=== PATIENT | male | born 1990 | race Caucasian/White ===

== ENCOUNTER 2022-11-22 11:11 | Inpatient (IN) | payer OTHER ==
[2022-11-22 11:45] VITALS: BMI 199.3
[2022-11-22] MEDS ORDERED: NALOXONE HCL (KLOXXADO) 8 MG SPRAY NS PRN (12:05)
[2022-11-22] MEDS ORDERED: BENZOCAINE/MENTHOL (CHLORASEPTIC ) LOZENGE MM PRN (12:05)
[2022-11-22] MEDS ORDERED: IBUPROFEN 600 MG TABLET (FP) PO PRN (12:05)
[2022-11-22] MEDS ORDERED: BENZONATATE 200 MG CAPSULE PO PRN (12:05)
[2022-11-22] MEDS ORDERED: POLYETHYLENE GLYCOL (HEALTHYLAX) 3350 17 GM PACKET PO PRN (12:05)
[2022-11-22] MEDS ORDERED: LOPERAMIDE HCL 2 MG CAPSULE PO PRN (12:05)
[2022-11-22] MEDS ORDERED: MAGNESIUM HYDROX 2400MG/30ML ORAL SUSPENSION 30 ML CUP PO PRN (12:05)
[2022-11-22] MEDS ORDERED: IBUPROFEN 400 MG TABLET (FP) PO PRN (12:05)
[2022-11-22] MEDS ORDERED: guaiFENesin 600 MG TABLET.ER (FP) PO PRN (12:05)
[2022-11-22] MEDS ORDERED: BISMUTH SUBSALICYLATE 262 MG/15 ML BTL PO PRN (12:05)
[2022-11-22] MEDS ORDERED: hydrOXYzine PAMOATE 25 MG CAPSULE (FP) PO PRN (12:05)
[2022-11-22] MEDS ORDERED: BUPRENORPHINE HCL 150 MCG, BUPRENORPHINE HCL 75 MCG BC PRN (12:05)
[2022-11-22] MEDS ORDERED: NICOTINE 10 MG CARTRIDGE (INHALER) IH PRN (12:05)
[2022-11-22] MEDS ORDERED: NALOXONE HCL 0.4 MG/ML VIAL IM PRN (12:05)
[2022-11-22] MEDS ORDERED: BUPRENORPHINE HCL 150 MCG, BUPRENORPHINE HCL 75 MCG BC ONE (12:05)
[2022-11-22] MEDS ORDERED: ONDANSETRON *ODT* 4 MG TABLET SL PRN (12:05)
[2022-11-22] MEDS ORDERED: DICYCLOMINE HCL 10 MG CAPSULE PO PRN (12:05)
[2022-11-22] MEDS ORDERED: cloNIDine HCL 0.1 MG TABLET PO ONE (12:05)
[2022-11-22] MEDS ORDERED: ACETAMINOPHEN 325 MG TABLET (FP) PO PRN (12:05)
[2022-11-22] MEDS: NICOTINE 14 MG/24 HOURS TOPICAL PATCH TD SCH (13:00)
[2022-11-22] MEDS: PRENATAL VITAMINS W/ FOLIC ACID TABLET (FP) PO SCH (13:00)
[2022-11-22] MEDS ORDERED: BUPRENORPHINE HCL 75 MCG FILM BC ONE (13:04)
[2022-11-22] MEDS ORDERED: NICOTINE 14 MG/24 HOURS TOPICAL PATCH TD ONE (13:04)
[2022-11-22] MEDS ORDERED: BUPRENORPHINE HCL 150 MCG FILM BC ONE (13:04)
[2022-11-22] MEDS ORDERED: PRENATAL VITAMINS W/ FOLIC ACID TABLET (FP) PO ONE (13:05)
[2022-11-22 17:03] LABS: ALBUMIN 3.6 g/dl (3.4-5.0); BLOOD UREA NITROGEN 9.8 mg/dL (7-18); CALCIUM 8.7 mg/dL (8.5-10.1)
[2022-11-22 17:04] LABS: HEMATOCRIT 43.1 % (35.4-49); MCH 33.1 pg (25.7-33.7); MCHC 34.9 g/dl (32.0-35.9); MEAN CELL VOLUME 94.9 fl (80-96); MEAN PLT VOLUME 9.6 fl (7.5-11.1); PLATELET COUNT 175 10^3/uL (134-434); RBC 4.54 M/mm3 (4.00-5.60); RDW 13.1 % (11.9-15.9); WHITE BLOOD COUNT 5.2 K/mm3 (4.0-10.0)
[2022-11-22 17:06] LABS: CREATININE 0.8 mg/dL (0.55-1.3)
[2022-11-22 17:08] LABS: BILIRUBIN,TOTAL 0.3 mg/dL (0.2-1); TOT PROT 6.5 g/dl (6.4-8.2)
[2022-11-22] MEDS: AMOXICILLIN 250 MG CAPSULE PO SCH (22:12)
[2022-11-22] MEDS: THIAMINE HCL 100 MG TABLET (FP) PO SCH (22:12)
[2022-11-22] MEDS: MELATONIN 5 MG TABLETS PO SCH (22:12)
[2022-11-22] MEDS: diazePAM 5 MG TABLET PO PRN (22:14)
[2022-11-23] MEDS ORDERED: BUPRENORPHINE HCL 150 MCG, BUPRENORPHINE HCL 75 MCG BC PRN
[2022-11-23] MEDS: BUPRENORPHINE HCL 150 MCG, BUPRENORPHINE HCL 75 MCG BC SCH ×2 (05:26→17:45)
[2022-11-23] MEDS: NICOTINE 14 MG/24 HOURS TOPICAL PATCH TD SCH (10:20)
[2022-11-23] MEDS: PRENATAL VITAMINS W/ FOLIC ACID TABLET (FP) PO SCH (10:20)
[2022-11-23] MEDS: diazePAM 5 MG TABLET PO PRN ×2 (10:21→22:14)
[2022-11-23] MEDS: AMOXICILLIN 250 MG CAPSULE PO SCH ×2 (10:21→22:14)
[2022-11-23] MEDS: BACITRACIN 0.9 GM PACKET TP SCH (14:58)
[2022-11-23] MEDS: cloNIDine HCL 0.1 MG TABLET PO PRN (17:45)
[2022-11-23] MEDS: THIAMINE HCL 100 MG TABLET (FP) PO SCH (22:13)
[2022-11-23] MEDS: MELATONIN 5 MG TABLETS PO SCH (22:13)
[2022-11-24] MEDS: BUPRENORPHINE HCL 450 MCG FILM BC SCH ×2 (05:29→17:43)
[2022-11-24] MEDS: METHOCARBAMOL 500 MG TABLET PO PRN (05:32)
[2022-11-24] MEDS: AMOXICILLIN 250 MG CAPSULE PO SCH ×2 (10:10→21:33)
[2022-11-24] MEDS: PRENATAL VITAMINS W/ FOLIC ACID TABLET (FP) PO SCH (10:10)
[2022-11-24] MEDS: BACITRACIN 0.9 GM PACKET TP SCH (10:10)
[2022-11-24] MEDS: NICOTINE 14 MG/24 HOURS TOPICAL PATCH TD SCH (10:11)
[2022-11-24] MEDS: diazePAM 5 MG TABLET PO PRN (10:11)
[2022-11-24] MEDS: cloNIDine HCL 0.1 MG TABLET PO PRN (17:43)
[2022-11-24] MEDS: MELATONIN 5 MG TABLETS PO SCH (21:33)
[2022-11-24] MEDS: THIAMINE HCL 100 MG TABLET (FP) PO SCH (21:33)
[2022-11-25] MEDS: BUPRENORPHINE/NALOXONE 4 MG/1 MG FILM PACKET SL SCH ×2 (05:31→17:32)
[2022-11-25] MEDS: BACITRACIN 0.9 GM PACKET TP SCH (10:09)
[2022-11-25] MEDS: NICOTINE 14 MG/24 HOURS TOPICAL PATCH TD SCH (10:10)
[2022-11-25] MEDS: AMOXICILLIN 250 MG CAPSULE PO SCH ×2 (10:10→22:10)
[2022-11-25] MEDS: PRENATAL VITAMINS W/ FOLIC ACID TABLET (FP) PO SCH (10:10)
[2022-11-25] MEDS: MAG HYDROX/AL HYDROX/SIMETH 30 ML UNIT-DOSE CUP PO PRN (20:17)
[2022-11-25] MEDS: THIAMINE HCL 100 MG TABLET (FP) PO SCH (22:11)
[2022-11-25] MEDS: MELATONIN 5 MG TABLETS PO SCH (22:11)
[2022-11-26] MEDS: METHOCARBAMOL 500 MG TABLET PO PRN (00:31)
[2022-11-26] MEDS: MAG HYDROX/AL HYDROX/SIMETH 30 ML UNIT-DOSE CUP PO PRN (01:43)
[2022-11-26] MEDS ORDERED: BUPRENORPHINE/NALOXONE 8 MG/2 MG FILM PACKET SL ONE (06:00)
[2022-11-26 08:46] VITALS: BP 113/65; PULSE 79; RESP 18; TEMP 98.4
[2022-11-26] MEDS: PRENATAL VITAMINS W/ FOLIC ACID TABLET (FP) PO SCH (09:58)
[2022-11-26] MEDS: AMOXICILLIN 250 MG CAPSULE PO SCH (09:58)
[2022-11-26] MEDS: BACITRACIN 0.9 GM PACKET TP SCH (09:59)
[2022-11-26] MEDS: NICOTINE 14 MG/24 HOURS TOPICAL PATCH TD SCH (10:00)
== END 2022-11-26 09:56 | disposition home or self-care (01) | DRG 773 ==
LOC: YASAS 11:11 → Y3N 12:43
PROVIDERS: ADMIT Allergy & Immunology; ATTEND Surgery
PROC: HZ2ZZZZ Detoxification Services for Substance Abuse Treatment (ICD-10-PCS; principal; 2022-11-22)
DX: F11.23 Opioid dependence with withdrawal (principal); F10.230 Alcohol dependence with withdrawal, uncomplicated; F16.20 Hallucinogen dependence, uncomplicated; F12.20 Cannabis dependence, uncomplicated; F17.210 Nicotine dependence, cigarettes, uncomplicated; F41.1 Generalized anxiety disorder; Z91.199 Patient's noncompliance with other medical treatment and regimen due to unspecified reason
CPT/HCPCS: 36415; 80053; 85027; 86780; 87811; 93005; 93010; C9803-CS; U0003; U0005